=== PATIENT | male | born 1995 | race Caucasian/White ===

== ENCOUNTER 2018-07-11 08:27 | Emergency (ER) | payer MEDICAID, OTHER ==
[~2018-07-11] VITALS: Ht 180.3 cm; Wt 69.7 kg
[2018-07-11] MEDS ORDERED: acetaminophen w/codeine (30MG) #3 tablet PO ONE (09:00)
[2018-07-11] MEDS ORDERED: ketorolac trometh inj. 60 MG/2 ML VIAL IM ONE (09:00)
[2018-07-11] MEDS ORDERED: cyclobenzaprine 10mg tablet PO ONE (09:00)
[2018-07-11] MEDS ORDERED: CYCL-1 PO (09:05)
[2018-07-11] MEDS ORDERED: ACET-3067 PO (09:05)
[2018-07-11] MEDS ORDERED: IBUP-1984 PO (09:05)
[2018-07-11 09:27] VITALS: BP 116/77
== END 2018-07-11 09:28 | disposition home or self-care (01) ==
LOC: ER 08:27
DX: M54.5 Low back pain (principal); M62.830 Muscle spasm of back; Z79.899 Other long term (current) drug therapy
CPT/HCPCS: 96372; 99283; J1885

== ENCOUNTER 2018-09-03 09:57 | Emergency (ER) | payer MEDICAID, OTHER ==
[~2018-09-03] VITALS: Ht 180.3 cm; Wt 65.9 kg
[~2018-09-03 09:57] MED LIST: CYCL-1 PO
[2018-09-03 12:40] VITALS: BP 128/64
== END 2018-09-03 13:36 | disposition left against medical advice (07) ==
LOC: ER 09:57
DX: F19.10 Other psychoactive substance abuse, uncomplicated (principal); F12.90 Cannabis use, unspecified, uncomplicated; F14.90 Cocaine use, unspecified, uncomplicated; Z79.899 Other long term (current) drug therapy
CPT/HCPCS: 36415; 84484; 93005; 99284

== ENCOUNTER 2018-12-18 02:18 | Emergency (ER) | payer MEDICAID ==
[~2018-12-18] VITALS: Ht 162.6 cm; Wt 76.0 kg
[2018-12-18 02:22] VITALS: BP 148/88
[2018-12-18] MEDS ORDERED: TETanus/Pertussis (Acell)/Diphther VAC/PF (Tdap-Adult) 0.5ml syringe IMVAC ONE (02:30)
== END 2018-12-18 03:00 ==
LOC: ER 02:19
DX: S30.811A Abrasion of abdominal wall, initial encounter (principal); S80.211A Abrasion, right knee, initial encounter; M54.6 Pain in thoracic spine; F12.90 Cannabis use, unspecified, uncomplicated; F14.90 Cocaine use, unspecified, uncomplicated; V49.9XXA Car occupant (driver) (passenger) injured in unspecified traffic accident, initial encounter; Y93.89 Activity, other specified; Y92.488 Other paved roadways as the place of occurrence of the external cause; Y99.8 Other external cause status
CPT/HCPCS: 90471; 90715; 99283